=== PATIENT | female | born 1980 | race Hispanic/Latino ===

== ENCOUNTER 2017-09-14 23:50 | Emergency (ER) | payer SELFPAY ==
[2017-09-14] MEDS ORDERED: Ibuprofen 800 MG TAB ONE (23:59)
[2017-09-14] MEDS ORDERED: AMOXicillin 250 MG CAP ONE (23:59)
== END 2017-09-15 00:04 | disposition home or self-care (01) ==
LOC: MADERS 23:50
DX: K03.81 Cracked tooth (principal); K02.9 Dental caries, unspecified
CPT/HCPCS: 99282

== ENCOUNTER 2018-05-20 05:33 | Emergency (ER) | payer SELFPAY ==
[2018-05-20] MEDS ORDERED: Ketorolac Tromethamine 60 MG/2 ML VIAL ONE (06:13)
[2018-05-20] MEDS ORDERED: CEFAZOLIN 1 GM VIAL ONE (06:13)
[2018-05-20] MEDS ORDERED: Sterile Water 10 ML ONE (06:15)
== END 2018-05-20 06:50 | disposition home or self-care (01) ==
LOC: MADERS 05:33
DX: N76.2 Acute vulvitis (principal); E78.5 Hyperlipidemia, unspecified
CPT/HCPCS: 96372; A4216; J0690; J1885

== ENCOUNTER 2019-06-08 13:55 | Emergency (ER) | payer SELFPAY ==
[2019-06-08] MEDS ORDERED: predniSONE 20 MG TAB ONE (14:29)
[2019-06-08] MEDS ORDERED: Ibuprofen 800 MG TAB ONE (14:29)
== END 2019-06-08 14:32 | disposition home or self-care (01) ==
LOC: MADERS 13:55
DX: M79.2 Neuralgia and neuritis, unspecified (principal); E78.5 Hyperlipidemia, unspecified
CPT/HCPCS: 99282; J7512